=== PATIENT | male | born 1990 | race Caucasian/White ===

== ENCOUNTER 2018-07-26 07:41 | Emergency (ER) | payer BC, OTHER ==
--- NOTE | 2018-07-26 08:55 | RAD REPORT ---
EXAM DESCRIPTION: CT - Stone Protocol - 07/26/2018 8:37 am CLINICAL HISTORY: Abdominal pain. Left flank pain COMPARISON: None. TECHNIQUE: Computed axial tomography of the abdomen pelvis was obtained without oral or IV contrast. Lack of IV and oral contrast limits evaluation of solid organs, bowel, and vessels. Coronal reformat fer images were obtained and reviewed. All CT scans are performed using dose optimization technique as appropriate and may include automated exposure control or mA/KV adjustment according to patient size. FINDINGS: Small bilateral renal calculi are present. Mild left hydronephrosis is seen. Left ureter i s dilated. 2 millimeter calculus is present at the left ureteral vesicle junction. Right hydronephrosis is not noted. The liver, spleen, pancreas and adrenals appear grossly normal There is no evidence of diverticulitis. The appendix appears normal A small hiatal hernia is seen IMPRESSION: 2 millimeter calculus at the left ureterovesical junction resulting in mild left hydrone phrosis
[2018-07-26 09:21] LABS: Urine Blood 3+ (NEG); Urine Glucose NEGATIVE (NEG); Urine Protein NEGATIVE (NEG); Urine pH 5.5 (5.0-7.0)
[2018-07-26] MEDS ORDERED: TAMSULOSIN 0.4 MG SR CAP ONE (09:25)
[2018-07-26] MEDS ORDERED: MORPHINE 4 MG/ML SYR ONE (09:25)
[2018-07-26] MEDS ORDERED: KETOROLAC 30 MG/ML INJ ONE (09:25)
[2018-07-26] MEDS ORDERED: ONDANSETRON 4 MG/2 ML VIAL ONE (09:26)
[2018-07-26] MEDS ORDERED: NA CHLORIDE 0.9% 1,000 ML ONE (09:26)
[2018-07-26 09:30] LABS: ALT/SGPT 61 U/L (12-78); AST/SGOT 33 U/L (15-37); Alkaline Phosphatase 92 U/L (45-117); BUN Blood Urea Nitrogen 18 mg/dL (7-18); Bicarbonate 31 mmol/L (21-32); Bilirubin Direct < 0.1 mg/dL (0-0.2); Bilirubin Total 0.2 mg/dL (0.2-1.0); Glucose Level 109 mg/dL (74-106); Lipase 120 U/L (73-393); Potassium 4.1 mmol/L (3.5-5.1); Protein, Total 7.3 g/dL (6.4-8.2); Sodium Level 143 mmol/L (136-145)
[2018-07-26 09:35] LABS: Urine Bacteria <20 /HPF (NONE SEEN)
[2018-07-26 09:36] LABS: Urine Culture Reflex Order REFLEXED
[2018-07-26 09:36] LABS: Absolute Lymphocytes (CBC) 1.3 K/uL (0.7-4.9); Absolute Monocytes 0.7 K/uL (0.1-1.3); Absolute Neutrophil 12.5 K/uL (1.8-8.0); Basophils % 0.3 % (0-1.3); Eosinophils % 0.3 % (0-4.4); Lymphocytes % 8.8 % (15.3-44.8); MCH 31.1 pg (27.0-35.0); MCV 91.1 fL (80-100); MPV 7.9 fL (7.6-11.3); Monocytes % 4.9 % (3.3-12.3); RBC Red Blood Cell Count 4.83 M/uL (4.33-5.43)
--- NOTE | 2018-07-26 10:47 | EDPHYS ---
Physician Documentation [facility] Name: Macho Rangel Age: 28 yrs Sex: Male : 1990 Arrival Date: 07/26/2018 Time: 07:44 Bed 19 Private MD: Juan Simental E ED Physician Christopher Espinal HPI: 07/26 09:00 This 28 yrs old Male presents to ER via Ambulatory with complaints of pm1 Abdominal Pain, Nausea/Vomiting. 09:00 The patient presents with abdominal pain in the left lower quadrant. Onset: The pm1 symptoms/episode began/occurred this morning. The symptoms do not radiate. Associated signs and symptoms: Pertinent positives: nausea and vomiting, Pertinent negatives: constipation, diarrhea, dysuria, fever, shortness of breath. The symptoms are described as sharp. Modifying factors: The symptoms are alleviated by nothing, the symptoms are aggravated by nothing. Severity of pain: in the emergency department the pain is actually worse. The patient has not experienced similar symptoms in the past. The patient has not recently seen a physician. Historical: - Allergies: 08:10 No Known Allergies; rb1 - Home Meds: 08:10 bupropion HCl 150 mg Oral Tb24 1 tab once daily [Active]; Risperdal 1 mg Oral tab 1 tab rb1 2 times per day [Active]; trazodone 100 mg Oral tab 1 tab 3 times per day [Active]; venlafaxine 150 mg Oral tr24 2 tab once daily [Active]; - PMHx: 08:10 Bipolar disorder; rb1 - PSHx: 08:10 None; rb1 - Immunization history:: Adult Immunizations up to date. - Ebola Screening: : Patient negative for fever greater than or equal to 101.5 degrees Fahrenheit, and additional compatible Ebola Virus Disease symptoms. - Social history:: Smoking status: Patient/guardian denies using tobacco. ROS: 09:00 Constitutional: Negative for fever, chills, and weight loss, Eyes: Negative for injury, pm1 pain, redness, and discharge, ENT: Negative for injury, pain, and discharge, Neck: Negative for injury, pain, and swelling, Cardiovascular: Negative for chest pain, palpitations, and edema, Respiratory: Negative for shortness of breath, cough, wheezing, and pleuritic chest pain. 09:00 Back: Negative for injury and pain. 09:00 : Negative for injury, bleeding, discharge, and swelling, MS/Extremity: Negative for injury and deformity, Skin: Negative for injury, rash, and discoloration, Neuro: Negative for headache, weakness, numbness, tingling, and seizure. 09:00 Abdomen/GI: Positive for abdominal pain, nausea and vomiting, of the left lower quadrant, Negative for diarrhea, constipation. Exam: 09:00 Constitutional: This is a well developed, well nourished patient who is awake, alert, pm1 and in no acute distress. Head/Face: Normocephalic, atraumatic. Eyes: Pupils equal round and reactive to light, extra-ocular motions intact. Lids and lashes normal. Conjunctiva and sclera are non-icteric and not injected. Cornea within normal limits. Periorbital areas with no swelling, redness, or edema. ENT: Nares patent. No nasal discharge, no septal abnormalities noted. Tympanic membranes are normal and external auditory canals are clear. Oropharynx with no redness, swelling, or masses, exudates, or evidence of obstruction, uvula midline. Mucous membranes moist. Neck: Trachea midline, no thyromegaly or masses palpated, and no cervical lymphadenopathy. Supple, full range of motion without nuchal rigidity, or vertebral point tenderness. No Meningismus. Chest/axilla: Normal chest wall appearance and motion. Nontender with no deformity. No lesions are appreciated. Cardiovascular: Regular rate and rhythm with a normal S1 and S2. No gallops, murmurs, or rubs. Normal PMI, no JVD. No pulse deficits. Respiratory: Lungs have equal breath sounds bilaterally, clear to auscultation and percussion. No rales, rhonchi or wheezes noted. No increased work of breathing, no retractions or nasal flaring. 09:00 Skin: Warm, dry with normal turgor. Normal color with no rashes, no lesions, and no evidence of cellulitis. MS/ Extremity: Pulses equal, no cyanosis. Neurovascular intact. Full, normal range of motion. 09:00 Abdomen/GI: Inspection: abdomen appears normal, Bowel sounds: normal, Palpation: soft, mild abdominal tenderness, in the left lower quadrant. 09:00 Back: normal spinal alignment noted, CVA tenderness, is noted on the left. 09:00 Neuro: Orientation: is normal, Motor: is normal, moves all fours, Gait: is steady, at a normal pace, without difficulty. Vital Signs: 08:06 BP 148 / 97; Pulse 93; Resp 16; Temp 98.1; Pulse Ox 97% on R/A; Pain 6/10; hb 09:00 BP 134 / 94; Pulse 66; Resp 17; Pulse Ox 99% ; rb1 10:00 BP 127 / 74; Pulse 82; Resp 17; Pulse Ox 98% on R/A; rb1 11:00 BP 113 / 62; Pulse 86; Resp 17; Pulse Ox 99% on R/A; Pain 2/10; rb1 MDM: 08:10 Patient medically screened. pm1 10:43 Data reviewed: vital signs. Data interpreted: Pulse oximetry: on room air is 99 %. pm1 Interpretation: normal. Counseling: I had a detailed discussion with the patient and/or guardian regarding: the historical points, exam findings, and any diagnostic results supporting the discharge/admit diagnosis, lab results, radiology results, the need for outpatient follow up, to return to the emergency department if symptoms worsen or persist or if there are any questions or concerns that arise at home. 07/26 08:25 Order name: Basic Metabolic Panel; Complete Time: 09:35 pm1 07/26 08:25 Order name: CBC with Diff pm1 07/26 08:25 Order name: Creatinine for Radiology; Complete Time: 09:35 pm1 07/26 08:25 Order name: Hepatic Function; Complete Time: 09:35 pm1 07/26 08:25 Order name: Lipase; Complete Time: 09:35 pm1 07/26 08:25 Order name: Urine Microscopic Only; Complete Time: 10:42 pm1 07/26 08:25 Order name: CT Stone Protocol; Complete Time: 08:56 pm1 07/26 09:12 Order name: Urine Dipstick--Ancillary (enter results); Complete Time: 09:35 eb 07/26 09:37 Order name: Urine Culture EDWY 07/26 09:55 Order name: CBC Smear Scan EDW[place] 07/26 08:25 Order name: IV Saline Lock; Complete Time: 09:02 pm1 07/26 08:25 Order name: Labs collected and sent; Complete Time: 09:02 pm1 07/26 08:25 Order name: Urine Dipstick-Ancillary (obtain specimen); Complete Time: 10:11 pm1 Administered Medications: 09:20 Drug: Zofran 4 mg Route: IVP; Site: right antecubital; rb1 09:35 Follow up: Response: No adverse reaction; Nausea is decreased rb1 09:20 Drug: NS 0.9% 1000 ml Route: IV; Rate: 1000 ml; Site: right antecubital; rb1 10:32 Follow up: IV Status: Completed infusion rb1 09:20 Drug: TORadol 30 mg Route: IVP; Site: right antecubital; rb1 09:35 Follow up: Response: No adverse reaction; Pain is decreased rb1 09:20 Drug: Flomax 0.4 mg Route: PO; rb1 09:50 Follow up: Response: No adverse reaction rb1 10:49 Not Given (provider discretion): morphine 4 mg IVP once rb1 Disposition: 13:55 Co-signature as Attending Physician, Christopher Espinal MD I agree with the assessment and kdr plan of care. Disposition: 07/26/18 10:46 Discharged to Home. Impression: Calculus of kidney and ureter. - Condition is Stable. - Discharge Instructions: Kidney Stones. - Prescriptions for Tylenol- Codeine #3 300-30 mg Oral Tablet - take 2 tablets by ORAL route every 6 hours As needed; 20 tablet. Zofran 4 mg Oral Tablet - take 1 tablet by ORAL route every 8 hours As needed; 20 tablet. Flomax 0.4 mg Oral Capsule, Sust. Release 24 hr - take 1 capsule by ORAL route once daily 1/2 hour following the same meal each day; 30 capsule. - Work release form, Medication Reconciliation Form, Thank You Letter, Antibiotic Education, Prescription Opioid Use form. - Follow up: Emergency Department; When: As needed; Reason: Worsening of condition. Follow up: Julia Plasencia MD; When: 2 - 3 days; Reason: Recheck today's complaints, Continuance of care, Re-evaluation by your physician. - Problem is new. - Symptoms have improved. Signatures: Dispatcher [employer] [facility] Christopher Espinal MD MD kdr Barber, Rebecca, RN RN rb1 Nick Cervantes, STERILIZATION TECH STERILIZATION TECH pm1 Corrections: (The following items were deleted from the chart) 11:17 10:46 07/26/2018 10:46 Discharged to Home. Impression: Calculus of kidney and ureter. rb1 Condition is Stable. Forms are Medication Reconciliation Form, Thank You Letter, Antibiotic Education, Prescription Opioid Use. Follow up: Emergency Department; When: As needed; Reason: Worsening of condition. Follow up: Julia Plasencia; When: 2 - 3 days; Reason: Recheck today's complaints, Continuance of care, Re-evaluation by your physician. Problem is new. Symptoms have improved. pm1
--- NOTE | 2018-07-26 10:47 | ER ---
Nurse's Notes [facility] Name: Macho Rangel Age: 28 yrs Sex: Male : 1990 Arrival Date: 07/26/2018 Time: 07:44 Bed 19 Private MD: Juan Simental E Diagnosis: Calculus of kidney and ureter Presentation: 07/26 08:05 Presenting complaint: Patient states: N/V and lower abdominal pain since this morning. hb Actively vomiting in triage. Transition of care: patient was not received from another setting of care. Onset of symptoms was July 26, 2018. Risk Assessment: Do you want to hurt yourself or someone else? Patient reports no desire to harm self or others. Care prior to arrival: None. 08:05 Method Of Arrival: Ambulatory hb 08:05 Acuity: IZA 3 hb 08:10 Initial Sepsis Screen: Does the patient meet any 2 criteria? No. Patient's initial rb1 sepsis screen is negative. Does the patient have a suspected source of infection? No. Patient's initial sepsis screen is negative. Triage Assessment: 08:10 General: Appears uncomfortable, Behavior is calm, cooperative, Denies fever. Pain: rb1 Complains of pain in left lower quadrant Pain currently is 4 out of 10 on a pain scale. Neuro: Level of Consciousness is awake, alert, obeys commands, Oriented to person, place, time, situation. Cardiovascular: Capillary refill < 3 seconds is brisk in bilateral fingers. Respiratory: Airway is patent Respiratory effort is even, unlabored, Respiratory pattern is regular, symmetrical. GI: Reports nausea. : No signs and/or symptoms were reported regarding the genitourinary system. Derm: Skin is pink, warm \T\ dry. Musculoskeletal: Range of motion: intact in all extremities. Historical: - Allergies: 08:10 No Known Allergies; rb1 - Home Meds: 08:10 bupropion HCl 150 mg Oral Tb24 1 tab once daily [Active]; Risperdal 1 mg Oral tab 1 tab rb1 2 times per day [Active]; trazodone 100 mg Oral tab 1 tab 3 times per day [Active]; venlafaxine 150 mg Oral tr24 2 tab once daily [Active]; - PMHx: 08:10 Bipolar disorder; rb1 - PSHx: 08:10 None; rb1 - Immunization history:: Adult Immunizations up to date. - Ebola Screening: : Patient negative for fever greater than or equal to 101.5 degrees Fahrenheit, and additional compatible Ebola Virus Disease symptoms. - Social history:: Smoking status: Patient/guardian denies using tobacco. Screenin:10 Abuse screen: Denies threats or abuse. Nutritional screening: No deficits noted. rb1 Tuberculosis screening: No symptoms or risk factors identified. Fall Risk None identified. Assessment: 08:10 General: Appears uncomfortable, Behavior is calm, cooperative, Denies fever. Pain: rb1 Complains of pain in left lower quadrant Pain currently is 4 out of 10 on a pain scale. Pain began 1 day ago. Neuro: Level of Consciousness is awake, alert, obeys commands, Oriented to person, place, time, situation. Cardiovascular: Capillary refill < 3 seconds is brisk in bilateral fingers. Respiratory: Airway is patent Respiratory effort is even, unlabored, Respiratory pattern is regular, symmetrical. GI: Bowel sounds present X 4 quads. Abd is soft and non tender Reports nausea, vomiting. : No signs and/or symptoms were reported regarding the genitourinary system. Derm: Skin is dry, Skin is normal, Skin temperature is warm. 08:33 Reassessment: pt. went to CT. rb1 09:10 Reassessment: Patient appears in no apparent distress at this time. No changes from rb1 previously documented assessment. 10:10 Reassessment: Patient appears in no apparent distress at this time. Patient and/or rb1 family updated on plan of care and expected duration. Pain level reassessed. Patient is alert, oriented x 3, equal unlabored respirations, skin warm/dry/pink. Mother at bedside. 11:05 Reassessment: Patient appears in no apparent distress at this time. No changes from rb1 previously documented assessment. Vital Signs: 08:06 BP 148 / 97; Pulse 93; Resp 16; Temp 98.1; Pulse Ox 97% on R/A; Pain 6/10; hb 09:00 BP 134 / 94; Pulse 66; Resp 17; Pulse Ox 99% ; rb1 10:00 BP 127 / 74; Pulse 82; Resp 17; Pulse Ox 98% on R/A; rb1 11:00 BP 113 / 62; Pulse 86; Resp 17; Pulse Ox 99% on R/A; Pain 2/10; rb1 ED Course: 07:44 Patient arrived in ED. as 07:45 Juan Simental MD is Private Physician. as 08:06 Triage completed. hb 08:06 Arm band placed on right wrist. hb 08:10 Nick Cervantes NP is [facility]. pm1 08:10 Christopher Espinal MD is Attending Physician. pm1 08:10 Patient has correct armband on for positive identification. Placed in gown. Bed in low rb1 position. Call light in reach. Side rails up X 1. Pulse ox on. NIBP on. Warm blanket given. Pillow given. 08:19 Monique Edge, MARION is Primary Nurse. rb1 08:36 CT completed. Patient tolerated procedure well. Patient moved to CT via wheelchair. [email or web address] Patient moved back from CT. 08:38 CT Stone Protocol In Process Unspecified. EDMS 10:43 Julia Plasencia MD is Referral Physician. pm1 11:16 No provider procedures requiring assistance completed. IV discontinued, intact, rb1 bleeding controlled, No redness/swelling at site. Pressure dressing applied. Administered Medications: 09:20 Drug: Zofran 4 mg Route: IVP; Site: right antecubital; rb1 09:35 Follow up: Response: No adverse reaction; Nausea is decreased rb1 09:20 Drug: NS 0.9% 1000 ml Route: IV; Rate: 1000 ml; Site: right antecubital; rb1 10:32 Follow up: IV Status: Completed infusion rb1 09:20 Drug: TORadol 30 mg Route: IVP; Site: right antecubital; rb1 09:35 Follow up: Response: No adverse reaction; Pain is decreased rb1 09:20 Drug: Flomax 0.4 mg Route: PO; rb1 09:50 Follow up: Response: No adverse reaction rb1 10:49 Not Given (provider discretion): morphine 4 mg IVP once rb1 Outcome: 10:46 Discharge ordered by . pm1 11:16 Discharged to home ambulatory, with family. rb1 11:16 Condition: stable 11:16 Discharge instructions given to patient, Instructed on discharge instructions, follow up and referral plans. medication usage, Demonstrated understanding of instructions, follow-up care, medications, Prescriptions given X 3. 11:17 Patient left the ED. rb1 Signatures: Dispatcher [employer] [facility] Michelle Trejo as Monique Edge, RN RN rb1 Nick Cervantes NP PLATEN PRESS OPERATOR pm1 hSarifa Cabezas, RN RN hb Tyrel, Mary jg6
[2018-07-26 11:21] VITALS: TEMP 98.1
[2018-07-26 11:24] VITALS: BP 113/62; O2SAT 99
[2018-07-26 12:58] LABS: Platelet Estimate ADEQ; Urine White Blood Cell Casts OK
[2018-07-26 12:59] LABS: Blood Morphology Comment NOT SEEN (NOT SEEN)
== END 2018-07-26 11:17 | disposition home or self-care (01) ==
LOC: ER 07:41
DX: N20.2 Calculus of kidney with calculus of ureter (principal); F31.9 Bipolar disorder, unspecified
CPT/HCPCS: 36415; 74176; 76377; 80048; 80076; 81003; 81015; 83690; 85025; 87086; 87088; 96361; 96374; 96375; 99284; J2405; J7030

== ENCOUNTER 2022-02-04 07:32 | Day surgery (SDC) | payer BC ==
[2022-02-04] MEDS ORDERED: Ringers Lactate 1,000 ML IV ONE ×2 (07:46→10:44)
[2022-02-04] MEDS ORDERED: propofoL 200 MG/20 ML VIAL IV ONE (08:35)
[2022-02-04] MEDS ORDERED: MIDAZOLAM HCL 2 MG/2 ML INJ ONE (08:36)
[2022-02-04] MEDS ORDERED: ONDANSETRON 4 MG/2 ML VIAL ONE (08:39)
[2022-02-04] MEDS ORDERED: GLYCOPYRROLATE 0.2 MG/ML SYR ONE (08:39)
[2022-02-04] MEDS ORDERED: ROCURONIUM 50 MG/5 ML VIAL IV ONE (08:39)
[2022-02-04] MEDS ORDERED: FENTANYL CITR 100 MCG/2 ML ONE ×2 (08:41→09:48)
[2022-02-04] MEDS ORDERED: dexAMETHasone 10 MG/ML VIAL ONE (08:42)
[2022-02-04] MEDS ORDERED: LIDOCAINE 2% MPF 5 ML VIAL ONE (08:45)
[2022-02-04] MEDS ORDERED: LIDOCAINE 1% W/EPI 1:100,000 10 ML VIAL ONE (09:16)
[2022-02-04] MEDS ORDERED: Phenylephrine HCl 10 MG/ML 1 ML VIAL ONE (09:34)
[2022-02-04] MEDS ORDERED: FENTANYL CITR 250 MCG/5 ML ONE (09:48)
[2022-02-04] MEDS ORDERED: MEPERIDINE HCL 25 MG/ML SYR ONE (11:02)
--- NOTE | 2022-02-04 11:09 | P.OP ---
Custodial Operations Manager: Tom De La Cruz Preoperative diagnosis: neoplasm uncertain behavior, left parotid Postoperative diagnosis: same Primary procedure: left partial partoidectomy without nerve dissection Anesthesia: general via ETT Estimated blood loss: 10ml Specimen: left parotid, suture 6 oclock Findings: 2-3cm firm mass in posterior/inferior left parotid Operative Technique: The patient's head was turned to the right for better exposure of the left face and neck. The planned incision site was injected with 4 mL of 1% lidocaine with epinephrine. The face and neck was prepped with Betadine and draped in a sterile fashion. An curvilinear incision was designed starting at the base of the tragus around the ear lobe and onto the upper portion of the left neck. Bov ie electrocautery was used to incise the skin and subcutaneous tissue and a sub- SMAS flap was developed anteriorly and posteriorly. The anterior skin flap was retracted and secured using silk sutures. The mass was palpated just posterior to the angle of the mandible and was approximately 2 to 3 cm in size, round, and firm. The posterior inferior aspect of the parotid gland was skeletonized using Bovie electrocautery, dissection with Meadows dissectors and ligation using the LigaSure. The tail of the parotid was mobilized and elevated superiorly, allowing for dissection along the deep aspect of the mass. An incision was made along the anterior aspect of the parotid gland, approximately 1 cm anterior to the anterior border of the mass by palpation. Judicious and careful dissection was made through the parotid tissue with attention to look for branches of the facial nerve or any movement or twitching of the face. None was encountered. The superior aspect specimen was carefully designed and incision through the parotid tissue was performed using Bovie electrocautery in the superficial layers. The LigaSure was then used to divide tissue attachments between the soft tissues of the parotid gland, freeing the mass with a margin of normal appearing and feeling tissue. After removal of the mass, the surgical site was thoroughly irrigated with sterile saline and areas of oozing along the cut parotid gland were cauterized judiciously using Bovie electrocautery. The wound appeared hemostatic. A 10 Barbadian round drain was placed within the posterior skin flap and secured using 4-0 nylon suture. Standard FRANCESCO bulb was applied. The incision was then closed in a layered fashion using 4-0 Vicryl deep sutures and 5-0 Monocryl subcuticular sutures. No additional dressing was applied to the incision. The skin was cleaned and dried. The FRANCESCO drain was placed on suction and appeared to hold well. The patient was then returned to care of anesthesia for awakening extubation in the operating room which proceeded without difficulty. The patient was transferred to the recovery room in stable condition. Complications: None Drain(s): FRANCESCO drain Fluids & blood products: crystalloid 1100ml Transferred to: Recovery Room Condition: Good
[2022-02-04 12:25] VITALS: BP 121/76; TEMP 96.8; O2SAT 98
== END 2022-02-04 12:37 | disposition home or self-care (01) ==
LOC: OR 07:32
PROVIDERS: ATTEND Otolaryngology
PROC: 0CB90ZZ Excision of Left Parotid Gland, Open Approach (ICD-10-PCS; principal; 2022-02-04 09:15)
DX: C07 Malignant neoplasm of parotid gland (principal); Z20.822 Contact with and (suspected) exposure to COVID-19
CPT/HCPCS: 42410; 88307; U0002; J2704; J2370; J2250; J3010 ×2; J1100; J2175; J7120 ×2; J2405